=== PATIENT | male | born 1995 | race Caucasian/White ===

== ENCOUNTER 2017-10-20 20:31 | Emergency (ER) | payer OTHER ==
--- NOTE | 2017-10-20 21:04 | ED PDOC ---
HPI: Psych/Substance Abuse Time Seen by Provider: 10/20/17 20:38 Chief Complaint (Nursing): Alcohol Ingestion Chief Complaint (Provider): Alcohol Ingestion History Per: Patient History/Exam Limitations: no limitations Suicide/Self Injury Attempted (Context): None Modifying Factor(s): Alcohol Additional Complaint(s): 22 year old male brought in by EMS presents to ED for alcohol intoxication and has no past medical history. Patient states that his mother is coming to pick him up. Patient denies having any medical complaints. PCP: Past Medical History Reviewed: Historical Data, Nursing Documentation, Vital Signs Vital Signs: Last Vital Signs Temp 97.9 F 10/20/17 20:37 Pulse 59 L 10/20/17 20:37 Resp 14 10/20/17 20:37 BP 118/78 10/20/17 20:37 Pulse Ox 100 10/20/17 20:37 - Medical History PMH: No Chronic Diseases - Surgical History Surgical History: No Surg Hx - Family History Family History: States: No Known Family Hx - Living Arrangements Living Arrangements: With Family - Social History Alcohol: Social - Allergies Allergies/Adverse Reactions: Allergies Allergy/AdvReac Type Severity Reaction Status Date / Time No Known Allergies Allergy Verified 10/20/17 20:37 Review of Systems ROS Statement: Except As Marked, All Systems Reviewed And Found Negative Physical Exam - Reviewed Nursing Documentation Reviewed: Yes Vital Signs Reviewed: Yes - Physical Exam Appears: Positive for: Non-toxic, No Acute Distress Skin: Positive for: Normal Color, Warm, Dry Cardiovascular/Chest: Positive for: Regular Rate, Rhythm. Negative for: Murmur Respiratory: Positive for: Normal Breath Sounds. Negative for: Respiratory Distress Gastrointestinal/Abdominal: Positive for: Normal Exam, Soft. Negative for: Tenderness Neurologic/Psych: Positive for: Alert, Oriented, Gait (steady). Negative for: Motor/Sensory Deficits - ECG O2 Sat by Pulse Oximetry: 100 (RA) Pulse Ox Interpretation: Normal Medical Decision Making Medical Decision Makin Initial impression: alcohol intoxication 2047 Upon re-evaluation, patient states he feels nauseous. Zofran was offered by the provider, but patient declined stating he "prefers to vomit". [id number] Mother is present for patient to be discharged in her care. Scribe Attestation: Documented by Jyoti Mendieta acting as a scribe for Satinder Mcfadden MD. MD Murphy Attestation: All medical record entries made by the Jeffrey were at my direction and personally dictated by me. I have reviewed the chart and agree that the record accurately reflects my personal performance of the history, physical exam, medical decision making, and the department course for this patient. I have also personally directed, reviewed, and agree with the discharge instructions and disposition. Disposition - Clinical Impression Clinical Impression: Alcohol use - Patient ED Disposition Is Patient to be Admitted: No - Disposition Disposition: Routine/Home Disposition Time: 21:10 Condition: STABLE Instructions: Alcohol Use - When Is Drinking a Problem? Forms: [facility] (Greek)
[2017-10-20 22:08] VITALS: BP 116/71; PULSE 78; RESP 18; TEMP 98; O2SAT 99
== END 2017-10-20 22:08 | disposition home or self-care (01) ==
LOC: H.ER 20:31
DX: F10.129 Alcohol abuse with intoxication, unspecified (principal)